=== PATIENT | male | born 1970 | race Caucasian/White ===

== ENCOUNTER 2018-07-15 21:45 | Emergency (ER) | payer OTHER ==
[~2018-07-15] VITALS: Ht 167.6 cm; Wt 95.3 kg
[~2018-07-15 21:45] MED LIST: FLEXERIL10 MG PO; PREDNISONE 20MG20 MG PO; TRAMADOL50 MG PO
[2018-07-15 22:29] LABS: ABSOLUTE BASOPHIL COUNT 0.1 /CUMM (0.0-0.2); ABSOLUTE EOSINOPHIL COUNT 0.2 /CUMM (0.0-0.7); ABSOLUTE GRANULOCYTE CT 4.6 /CUMM (1.4-6.5); ABSOLUTE LYMPH COUNT 3.3 /CUMM (1.2-3.4); ABSOLUTE MONOCYTE COUNT 1.1 /CUMM (0.10-0.60); BASOPHIL % 0.9 % (0.0-2.0); EOSINOPHIL % 2.2 % (0-5); HEMATOCRIT 49.2 % (42-52); MEAN CORPUSCULAR HGB 28.9 PG (27.0-31.0); MEAN CORPUSCULAR HGB CONC 34.3 G/DL (33.0-37.0); MEAN PLATELET VOLUME 7.7 FL (7.4-10.4); PLATELET COUNT 295 /CUMM (130-400); RBC DISTRIBUTION WIDTH 14.1 % (11.5-14.5); RED BLOOD CELL CT 5.85 /CUMM (4.70-6.10); WHITE BLOOD CELL COUNT 9.3 /CUMM (4.8-10.8)
--- NOTE | 2018-07-15 22:53 | CT SCAN REPORT ---
EXAMINATION: CT ABDOMEN AND PELVIS WITHOUT CONTRAST CLINICAL INFORMATION: Left flank pain COMPARISON: None TECHNIQUE: Multidetector volumetric imaging was performed from the superior aspect of the liver through the pubic symphysis. Sagittal and coronal reformatted images were obtained on the technologist's workstation. DLP: 767.88 mGy-cm FINDINGS: LUNG BASES: There is linear atelectasis above the right and left diaphragm involving the lower lobes bilateral. There is no infiltrate or pleural effusion. LIVER, GALLBLADDER, AND BILIARY TREE: 3.3 cm hypodense cystic lesion at the posterior right lobe liver. There is no suspicious liver lesions. There is no intrapelvic bile duct dilatation. The right lobe liver measures 21 cm superior inferior, mild hepatomegaly. The gallbladder is unremarkable with no evidence of radiopaque gallstones, gallbladder wall thickening, or obvious pericholecystic inflammatory changes. PANCREAS: Unremarkable. SPLEEN: Unremarkable. There is a 0.5 cm splenule at the anterior splenic margin. ADRENAL GLANDS: Unremarkable. KIDNEYS AND URETERS: The kidneys are normal in size, shape, and attenuation. No hydronephrosis, hydroureter, or calculi seen. No perinephric stranding. BLADDER: Unremarkable. GASTROINTESTINAL TRACT: The small and large bowel are unremarkable. The appendix is unremarkable. ABDOMINAL WALL: No significant hernia is appreciated. LYMPH NODES: Normal. VASCULAR: There are scattered vascular calcifications of the distal aorta and the iliac arteries. There is no aneurysm. PELVIC VISCERA: Unremarkable. OSSEOUS STRUCTURES: Unremarkable. IMPRESSION: No acute abnormality of the abdomen or the pelvis.
--- NOTE | 2018-07-15 23:06 | ED GI/GU/ABDOMINAL COMPLAINT ---
History of Present Illness General Chief Complaint: General Adult Stated Complaint: PT THINKS HE HAS KIDNEY STONES Source: patient Exam Limitations: no limitations Vital Signs & Intake/Output Vital Signs & Intake/Output Vital Signs Date Time Temp Pulse Resp B/P B/P Pulse O2 O2 Flow FiO2 Mean Ox Delivery Rate 07/16 0151 98.3 120 20 144/93 97 Room Air 07/16 0039 120 20 136/90 98 07/15 2204 96.5 134 18 143/92 97 Room Air ED Intake and Output 07/16 0000 07/15 1200 Intake Total 2000 Output Total Balance 1999 Intake, IV 1999 Patient 210 lb Weight Weight Reported by Patient Measurement Method Allergies Coded Allergies: Penicillins (Severe, "CAN'T BREATHE" 07/15/18) Reconcile Medications CYCLOBENZAPRINE HCL (Flexeril) 10 MG TABLET 1 TAB PO Q8H PRN PAIN/SPASM Ketorolac Tromethamine 10 MG TABLET 1 TAB PO Q6P PRN PAIN RECIEVED IV HERE Prednisone 20 MG TABLET 1 TAB PO TAPER SCIATICA DAY 1,2: 3 TABS PO QD DAY 3,4: 2 TABS PO QD DAY 5,6: 1 TAB PO QD DAY 7,8: 1/2 TAB PO QD TRAMADOL HCL (Tramadol) 50 MG TABLET 1-2 TAB PO Q6H PRN PAIN Triage Note: PT FROM HOME C/O OF LEFT SIDE FLANK PAIN "KIDNEY STONE" PAIN 05/28 SINCE THURSDAY INTERMITENTLY. PT STATES HE HAS A HX OF THE SAME LAST MAY. PTS BP SLIGHTLY ELEVATED 143/92. PT UNABLE TO SIT STILL IN TRIAGE. PT DENIES N/V AT THIS TIME. PT DENIES SELF MEDICATING. Triage Nurses Notes Reviewed? yes Onset: Abrupt Duration: day(s): (4), changing over time, continues in ED, getting worse Timing: recent history Quality/Severity: moderate, sharpness Severity Numbers: 8 Location: left flank Radiation: back Activities at Onset: none Prior Abdominal Problems: similar symptoms (Kidney stones) Past Sexual History: Unobtainable at this time HPI: 48-year-old male history of kidney stones and chronic back pain presents for evaluation of left flank pain. Patient reports symptoms initially started on Thursday of this week and have been intermittent. The pain became more severe today. The pain is located in the left flank and radiates to the back. It is very similar previous kidney stones. Denies any associated nausea or vomiting no hematuria dysuria fevers numbness tingling chest pain shortness of breath coughing. He has not been taking any medicine at home. Past History Travel History Traveled to [place] past 21 day No Medical History Any Pertinent Medical History? see below for history Renal: nephrolithiasis Musculoskeletal: SLIPPED DISC Surgical History Surgical History: non-contributory Psychosocial History What is your primary language [place] Tobacco Use: Never used Family History Hx Contributory? No Review of Systems Review of Systems Constitutional: Reports: no symptoms. EENTM: Reports: no symptoms. Respiratory: Reports: no symptoms. Cardiovascular: Reports: no symptoms. GI: Reports: see HPI, abdominal pain (flank pain). Genitourinary: Reports: no symptoms. Musculoskeletal: Reports: see HPI, back pain. Skin: Reports: no symptoms. Neurological/Psychological: Reports: no symptoms. Hematologic/Endocrine: Reports: no symptoms. Immunologic/Allergic: Reports: no symptoms. All Other Systems: Reviewed and Negative Physical Exam Physical Exam General Appearance: well developed/nourished, no apparent distress, alert, awake Head: atraumatic, normal appearance Eyes: Bilateral: normal appearance, EOMI. Ears, Nose, Throat, Mouth: moist mucous membrane Neck: normal inspection, supple, full range of motion Respiratory: normal breath sounds, chest non-tender, no respiratory distress, lungs clear Cardiovascular: regular rate/rhythm, normal peripheral pulses Peripheral Pulses: 2+ radial (R), 2+ radial (L) Gastrointestinal: normal bowel sounds, soft, no organomegaly, tenderness (left flank) Back: normal inspection, normal range of motion, tenderness to palpation near the left costovertebral angle Extremities: normal range of motion Neurologic/Psych: no motor/sensory deficits, awake, alert, oriented x 3, normal gait, normal mood/affect Skin: intact, normal color, warm/dry Core Measures ACS in differential dx? No Sepsis Present: No Sepsis Focused Exam Completed? No Progress Differential Diagnosis: diverticulitis, gastritis, pancreatitis, peptic ulcer, PUD/GERD, pyelonephritis, ureterolithiasis, urinary retention, urethritis, UTI/ pyelo Plan of Care: Orders Procedure Date/time Status Add-on Test (ER Only) 07/16 003 Active D-DIMER 07/16 39 Complete EKG 07/16 39 Active URINE DRUG SCREEN FOR ER ONLY 09/27 2323 Complete TROPONIN LEVEL 07/15 2220 Complete URINALYSIS 07/15 2210 Complete COMPREHENSIVE METABOLIC PANEL 07/15 2210 Complete CBC WITHOUT DIFFERENTIAL 07/15 2210 Complete Laboratory Tests 07/16/18 0050: D-Dimer High Sensitivty < 200 07/15/18 2325: Urine Opiates Screen < 100, Methadone Screen < 40, Barbiturate Screen < 60, Ur Phencyclidine Scrn < 6.00, Amphetamines Screen < 100, U Benzodiazepines Scrn < 85, Urine Cocaine Screen < 50, Urine Cannabis Screen < 5.00, Urine Color STRAW, Urine Clarity CLEAR, Urine pH 6.0, Ur Specific [place] 1.010, Urine Protein NEG, Urine Ketones NEG, Urine Nitrite NEG, Urine Bilirubin NEG, Urine Urobilinogen 0.2, Ur Leukocyte Esterase NEG, Ur Microscopic EXAM NOT REQUIRED, Urine Hemoglobin NEG, Urine Glucose NEG 07/15/182219: Anion Gap 10, Estimated GFR > 60, BUN/Creatinine Ratio 18.8, Glucose 123 H, Calcium 9.8, Total Bilirubin 0.5, AST 32, ALT 56, Alkaline Phosphatase 101, Troponin I < 0.01, Total Protein 7.7, Albumin 4.6, Globulin 3.1, Albumin/ Globulin Ratio 1.5, CBC w Diff NO MAN DIFF REQ, RBC 5.85, MCV 84.0, MCH 28.9, MCHC 34.3, RDW 14.1, MPV 7.7, Gran % 50.0, Lymphocytes % 35.3, Monocytes % 11.6 H, Eosinophils % 2.2, Basophils % 0.9, Absolute Granulocytes 4.6, Absolute Lymphocytes 3.3, Absolute Monocytes 1.1 H, Absolute Eosinophils 0.2, Absolute Basophils 0.1 pt is here for evaluation of left flank pain that started initially on Thursday of this week or Dustin got worse. Patient reports this is very similar to previous kidney stone pain. Pain is diffuse with palpation of the left flank and left back. Patient is tachycardic to the 130s and blood pressure stable. Lab CT scan ordered patient medicated with fluids and IV Toradol. On reevaluation after Toradol patient is still reporting some significant pain. He was medicated with IV Tylenol. Lab work overall is unremarkable EKG shows sinus tachycardia. Patient remains tachycardic to the 1 teens. He does report he has a history of elevated heart rate a review of past vital signs confirm this. D-dimer was obtained and is negative. CT scan is negative for any acute findings. Patient is feeling better after IV Tylenol and Toradol. Patient remains tachycardic his EKG was sinus rhythm. Troponin and d-dimer are negative. Pain is very reproducible with palpation. Urine does not show any signs of infection lab work is unremarkable. Patient appears clinically well. He was advised to continue fluids Tylenol or ibuprofen for pain patient declines any additional pain medicine. He is tolerating fluids. He reports the symptoms are very similar to previous kidney stones. Discussed return precautions in detail patient agrees Diagnostic Imaging: Viewed by Me: CT Scan. Discussed w/RAD: CT Scan. Radiology Impression: PATIENT: ISAIAH HODGES PRESENT AGE: 48 PATIENT ACCOUNT NO: [id number] : 70 LOCATION: [facility] ORDERING PHYSICIAN: Parker CARL SERVICE DATE: 07/15/18 EXAM TYPE: CAT - CT ABD & PELVIS W/O IV CONTRAS EXAMINATION: CT ABDOMEN AND PELVIS WITHOUT CONTRAST CLINICAL INFORMATION: Left flank pain COMPARISON: None TECHNIQUE: Multidetector volumetric imaging was performed from the superior aspect of the liver through the pubic symphysis. Sagittal and coronal reformatted images were obtained on the technologist's workstation. DLP: 767.88 mGy-cm FINDINGS: LUNG BASES: There is linear atelectasis above the right and left diaphragm involving the lower lobes bilateral. There is no infiltrate or pleural effusion. LIVER, GALLBLADDER, AND BILIARY TREE: 3.3 cm hypodense cystic lesion at the posterior right lobe liver. There is no suspicious liver lesions. There is no intrapelvic bile duct dilatation. The right lobe liver measures 21 cm superior inferior, mild hepatomegaly. The gallbladder is unremarkable with no evidence of radiopaque gallstones, gallbladder wall thickening, or obvious pericholecystic inflammatory changes. PANCREAS: Unremarkable. SPLEEN: Unremarkable. There is a 0.5 cm splenule at the anterior splenic margin. ADRENAL GLANDS: Unremarkable. KIDNEYS AND URETERS: The kidneys are normal in size, shape, and attenuation. No hydronephrosis, hydroureter, or calculi seen. No perinephric stranding. BLADDER: Unremarkable. GASTROINTESTINAL TRACT: The small and large bowel are unremarkable. The appendix is unremarkable. ABDOMINAL WALL: No significant hernia is appreciated. LYMPH NODES: Normal. VASCULAR: There are scattered vascular calcifications of the distal aorta and the iliac arteries. There is no aneurysm. PELVIC VISCERA: Unremarkable. OSSEOUS STRUCTURES: Unremarkable. IMPRESSION: No acute abnormality of the abdomen or the pelvis. DICTATED BY: Audie Hartley MD DATE/TIME DICTATED:07/15/182238 CHIEF CUSTOMER OFFICER:CORTES DATE/TIME TRANSCRIBED:07/15/182238 CONFIDENTIAL, DO NOT COPY WITHOUT APPROPRIATE AUTHORIZATION. <Electronically signed in Other Vendor System> SIGNED BY: Audie Hartley MD 07/15/187 Initial ED EKG: no ST T wave changes, sinus tachycardia rate 119 Departure Departure Disposition: HOME OR SELF CARE Condition: Stable Clinical Impression Primary Impression: Flank pain Referrals: Da DUMONT,Luis Miguel Ordonez (PCP/Family) Additional Instructions: Rest, avoid heavy lifting bending or excessive physical activity. Ketorolac and Tylenol as needed for pain. Make a follow-up with your primary care doctor to review all results of today's visit. Monitor symptoms closely if you have worsening pain or any other concerns return immediately. Departure Forms: Customer Survey General Discharge Information Prescriptions: Current Visit Scripts Ketorolac Tromethamine 1 TAB PO Q6P PRN PAIN RECIEVED IV HERE #20 TAB
[2018-07-16] MEDS ORDERED: KETOROLAC TROME10 M1 PO (00:34)
[2018-07-16 01:51] VITALS: BP 144/93
== END 2018-07-16 02:01 ==
LOC: ERH 21:45
PROVIDERS: Physician Assistant Medical
DX: R10.9 Unspecified abdominal pain (principal)
CPT/HCPCS: 74176; 80307; 81003; 93005; 93010; 96361; 96374; 96375; 99291; J0131; J1885